=== PATIENT | female | born 1965 | race Asian ===

== ENCOUNTER 2016-06-22 17:12 | Emergency (ER) | payer MEDICAID ==
[2016-06-22 18:10] LABS: BASOPHILS 0.2 % (0.0-2.0); EOSINOPHILS 0.6 % (0-7); HEMATOCRIT 39.2 % (36.0-48.0); HEMOGLOBIN 13.1 g/dL (12-16); IMMATURE GRANULOCYTES 0.3 % (0-5); LYMPHOCYTES 3.4 % (15-50); MCH 29.9 pg (26.0-34.0); MCHC 33.4 g/dL (31.0-37.0); MCV 89.5 fL (80.0-100.0); MEAN PLATELET VOLUME 10.1 fL (7.4-10.4); MONOCYTES 2.4 % (2-11); NEUTROPHILS 93.1 % (40-80); PLATELET COUNT 188 10x3/uL (130-400); RBC 4.38 10x6/uL (4.00-5.40); WBC 14.4 10x3/uL (4.8-10.8)
[2016-06-22 18:28] LABS: APPEARANCE HAZY (CLEAR); BILIRUBIN NEGATIVE (NEGATIVE); COLOR YELLOW (YELLOW); GLUCOSE NEGATIVE (NEGATIVE); KETONE NEGATIVE (NEGATIVE); LEUKOCYTE ESTERASE TRACE (NEGATIVE); NITRITE POSITIVE (NEGATIVE); PROTEIN NEGATIVE (NEGATIVE); UROBILINOGEN NORMAL (NORMAL)
[2016-06-22 18:29] LABS: BACTERIA MANY /hpf (NONE SEEN); EPITHELIAL CELLS 0-5 /hpf (0-5); RED CELLS - URINE 0-5 /hpf (0-5)
[2016-06-22 18:31] LABS: ALBUMIN 3.4 g/dL (3.4-5.0); ALKALINE PHOSPHATASE 49 U/L (46-116); ALT (SGPT) 45 U/L (10-68); AMYLASE - SERUM 59 U/L (25-115); CALC OSMOLALITY 280 mosm/kg (275-300); CALCIUM 8.2 mg/dL (8.5-10.1); CARBON DIOXIDE 25.4 mmol/L (21.0-32.0); CHLORIDE - SERUM 103 mmol/L (98-107); CREATININE - SERUM 0.8 mg/dL (0.6-1.3); GLUCOSE 99 mg/dL (74-106); LIPASE 198 U/L (73-393); POTASSIUM - SERUM 3.5 mmol/L (3.5-5.1); PROTEIN - SERUM 6.9 g/dL (6.4-8.2); SODIUM 139 mmol/L (136-145); UREA NITROGEN 22 mg/dL (7-18); eGFR NON AFRICAN AMERICAN 81 mL/min (90-120)
== END 2016-06-22 19:00 | disposition home or self-care (01) ==
LOC: D.ER 17:12
PROVIDERS: Nurse Practitioner Family
DX: N39.0 Urinary tract infection, site not specified (principal); R10.2 Pelvic and perineal pain; R11.10 Vomiting, unspecified

== ENCOUNTER 2016-10-23 09:49 | Outpatient (CLI) | payer OTHER | END 2016-10-23 13:24 | LOC: D.MAMMO 09:49 | DX: Z12.31 Encounter for screening mammogram for malignant neoplasm of breast (principal) ==

== ENCOUNTER → 2016-11-20 09:16 | Outpatient (CLI) | payer OTHER | END | disposition home or self-care (01) | LOC: D.MAMMO 11-08 14:30 → D.US 11-09 08:00 → D.MAMMO 09:16 | DX: R92.8 Other abnormal and inconclusive findings on diagnostic imaging of breast (principal) ==

== ENCOUNTER 2018-08-22 09:00 | Outpatient (CLI) | payer OTHER | END 2018-08-22 10:00 | disposition home or self-care (01) | LOC: D.MAMMO 09:00 | PROVIDERS: ATTEND Family Medicine | DX: Z12.31 Encounter for screening mammogram for malignant neoplasm of breast (principal) ==